=== PATIENT | female | born 1995 | race African-American/Black ===

== ENCOUNTER 2019-02-13 23:40 | Emergency (ER) | payer OTHER, SELFPAY ==
[2019-02-13 23:42] VITALS: BP 145/86; PULSE 92; RESP 16; TEMP 36.9; O2SAT 100; BMI 43.2
[2019-02-14] MEDS: 0.9% Normal Saline 1,000 ML 1000 ML IV (00:31)
[2019-02-14] MEDS: Ketorolac 30 MG/ML Syringe IV (00:31)
[2019-02-14 00:40] LABS: Absolute Lymphocyte Count 3.28 X10^3/ul (0.83-4.51); Absolute Neutrophil Count 4.2 X10^3/uL (2.0-7.7); Basophil# 0.01 X10^3/uL; Basophil% 0.1 % (0-1); Eosinophil# 0.19 X10^3/uL; Eosinophils% 2.3 % (0-5); Hematocrit 35.1 % (37-47); Hemoglobin 10.7 g/dl (12.0-15.0); Lymphocyte # 3.28 X10^3/ul (4.0); Mean Corp Hgb Conc 30.5 g/gl (32-36); Mean Corpuscular Hgb 23.6 pg (27.0-32.0); Mean Corpuscular Volume 77.5 fL (81-99); Mean Platelet Vol. 10.5 fl (6.2-12.0); Monocyte% 8.3 % (0-10); Neutrophil # 4.21 X10^3/uL (2.7-7.7); Neutrophil % 50.2 % (47-70); Platelet Count 323 K/mm3 (150-450); RBC Distribution Width CV 15.9 % (11.6-14.6); RBC Distribution Width SD 44.3 fl (35.1-43.9); Red Blood Count 4.53 M/mm3 (4.2-5.4); White Blood Count 8.4 K/mm3 (4.4-11.0)
[2019-02-14 00:43] LABS: POSITIVE COUNT NO; POSITIVE DIFFERENTIAL NO; POSITIVE MORPHOLOGY NO
[2019-02-14 00:52] LABS: Internal QC Validated? YES +Cl - CLEAR BKGD; Pregnancy, Serum, hCG Quali. NEGATIVE Negative
[2019-02-14 00:54] LABS: Anion Gap 7 (5-15); BUN 14 mg/dL (7-18); BUN/Creat Ratio 18.7 RATIO (10-20); Calcium,Total 8.4 mg/dL (8.5-10.1); Chloride 110 mmol/L (98-107); Creatinine, Serum 0.75 mg/dL (0.55-1.02); EST Glomerular Filtration Rate 103 mL/min (>60); Est Glom Filt Rate - Afr Amer 124 mL/min (>60); Estimated Creatinine Clearance 93.06 ml/min; Glucose 105 mg/dL (74-106); Potassium 3.8 mmol/L (3.5-5.1); Sodium Level 141 mmol/L (136-145)
--- NOTE | 2019-02-14 02:01 | ED.VISSUMM ---
- ER Visit Summary Date of Service: 02/14/19 Chief Complaint: Vaginal bleeding History of Present Illness: The patient is a 23 F recently diagnosed with PCOS. Patient states she bled for 3 months ending in November. She then started bleeding again in late January and has been bleeding for the last 10 days. She reports passing clots and some santana tissue. She has been followed by the [facility]'s health clinic at [facility]. She states a friend recommended she see Dr. Castro so she came to [facility]. Physical Examination: Vital signs unremarkable. Patient sitting upright in bed no acute distress. Head and neck examination normal. Heart is regular rate and rhythm. Lung sounds are clear. Abdomen is soft with minimal suprapubic tenderness. No guarding or rebound. Test Results: CBC reveals a hemoglobin of 10.7 and hematocrit 35.1. Chemistry studies unremarkable. test negative. Emergency Department Course and Treatment: Patient was given Toradol and IV fluids. On repeat evaluation she does state that the cramping she was experiencing is improved. She will be provided with Dr. Castro's information for outpatient follow-up. Treatment Plan: [] Disposition: Discharge Impression: Menorrhagia This note was generated with [employer] dictation software. It may contain incorrect words, spelling, and punctuation that were not noted in review of the chart prior to signing ED Disposition - Plan for ED Patient: Disposition: Home or Assisted Living Instructions: ED Bleeding Menstrual Heavy Prescriptions: Ketorolac [Toradol] 10 mg PO Q6H PRN #20 tablet PRN Reason: Pain Referrals: Luzma Castro MD [STAFF PHYSICIAN] - As soon as possible
[2019-02-14 02:11] VITALS: BP 110/65; PULSE 86; RESP 18; O2SAT 99
== END 2019-02-14 02:12 | disposition home or self-care (01) ==
PROVIDERS: Emergency Provider Emergency Medicine
DX: N92.0 Excessive and frequent menstruation with regular cycle (principal); E28.2 Polycystic ovarian syndrome; Z79.899 Other long term (current) drug therapy
CPT/HCPCS: 80048; 84703; 85025; 96361; 96374; 99283; J7030; A4216

== ENCOUNTER → 2019-04-01 09:06 | Outpatient (CLI) | payer OTHER, SELFPAY ==
[2019-04-01 08:32] VITALS: BMI 41.0
[2019-04-01 09:38] LABS: Absolute Lymphocyte Count 1.93 X10^3/ul (0.83-4.51); Absolute Neutrophil Count 5.3 X10^3/uL (2.0-7.7); Basophil# 0.01 X10^3/uL; Basophil% 0.1 % (0-1); Eosinophil# 0.07 X10^3/uL; Eosinophils% 0.9 % (0-5); Hematocrit 37.1 % (37-47); Hemoglobin 11.5 g/dl (12.0-15.0); Lymphocyte # 1.93 X10^3/ul (4.0); Lymphocyte % 24.9 % (19-41); Mean Corpuscular Hgb 24.8 pg (27.0-32.0); Mean Corpuscular Volume 80.1 fL (81-99); Mean Platelet Vol. 10.6 fl (6.2-12.0); Monocyte# 0.42 X10^3/uL; Monocyte% 5.4 % (0-10); Neutrophil % 68.6 % (47-70); POSITIVE COUNT NO; POSITIVE DIFFERENTIAL NO; POSITIVE MORPHOLOGY NO; Platelet Count 314 K/mm3 (150-450); RBC Distribution Width CV 15.7 % (11.6-14.6); RBC Distribution Width SD 45.6 fl (35.1-43.9); Red Blood Count 4.63 M/mm3 (4.2-5.4); White Blood Count 7.7 K/mm3 (4.4-11.0)
[2019-04-01 10:31] LABS: Prolactin 21.6 ng/mL; Thyroid Stim Hormone (TSH) 2.96 uIU/mL (0.358-3.74)
[2019-04-02 20:06] LABS: DHEA Sulfate 341.1 ug/dL (110.0-431.7)
[2019-04-03 11:22] LABS: Testosterone Free 7.3 pg/mL (0.0-4.2)
== END ==
PROVIDERS: Obstetrics & Gynecology; Family Provider Internal Medicine; PCP Internal Medicine; Referring Provider Nurse Practitioner Women's Health; Visit Provider Nurse Practitioner Women's Health
DX: N93.9 Abnormal uterine and vaginal bleeding, unspecified (principal)
CPT/HCPCS: 36415; 82627; 84146; 84402; 84443; 85025; 82626